=== PATIENT | female | born 1985 | race Caucasian/White ===

== ENCOUNTER 2020-09-23 15:33 | Emergency (ER) | payer MEDICAID ==
[~2020-09-23] VITALS: Ht 160 cm; Wt 47.5 kg
[~2020-09-23 15:33] MED LIST: ANTIDEPRESSANT PO; BUPR100T6 PO; GABA-826 PO; MELO7.5T31 PO; ONDA8TAB18 SL; OXYC10TA47
--- NOTE | 2020-09-23 16:24 | NUR ---
PT C/O HITTING HER HEAD BEGINNING OF SEPTEMBER, STATES HER SYMPTOMS ARE PAIN IN HER HEAD, WEIGHT LOSS AND MEMORY ISSUES. PT CHANGED INTO GOWN, CALL LIGHT WITHIN REACH, BED IN LOWEST POSITION.
[2020-09-23 16:31] VITALS: BP 107/49
--- NOTE | 2020-09-23 16:49 | NUR ---
PHLEBOTOMY IS AT THE BEDSIDE FOR BLOOD SAMPLING.
[2020-09-23 17:23] LABS: BASOPHILS % (AUTO) 1 % (0-1); EOSINOPHILS % (AUTO) 1 % (1-7); LYMPHOCYTES % (AUTO) 48 % (22-44); MEAN CORPUSCULAR HEMOGLOBIN 31.8 pg (27.0-34.8); MEAN CORPUSCULAR HGB CONC 34.2 g/dL (32.4-35.8); MEAN PLATELET VOLUME 8.1 fL (7.4-10.4); MONOCYTES % (AUTO) 7 % (2-9); NEUTROPHILS % (AUTO) 45 % (42-75); PLATELET COUNT 295 x10^3/uL (130-400); RED BLOOD COUNT 3.96 x10^6/uL (3.82-5.3); RED CELL DISTRIBUTION WIDTH 12.8 % (9.6-15.2)
[2020-09-23 17:40] LABS: ANION GAP 4 mmol/L (5-15); CHLORIDE 105 mmol/L (98-107)
--- NOTE | 2020-09-23 17:40 | NUR ---
PT TO CT W TECH
[2020-09-23 17:46] LABS: ALANINE AMINOTRANSFERASE 18 U/L (12-78); ALKALINE PHOSPHATASE 68 U/L (45-117); BILIRUBIN,TOTAL 0.3 mg/dL (0.2-1.0); CREATININE 0.57 mg/dL (0.55-1.02); TOTAL PROTEIN 7.1 g/dL (6.4-8.2)
--- NOTE | 2020-09-23 18:07 | NUR ---
PT AMBULATED TO THE RESTROOM WITH A STEADY GAIT. THERE ARE NO ACUTE CHANGES IN HER CONDITION SINCE HER ARRIVAL HERE TODAY. I WILL CONTIUE TO MONITOR AND TREAT ORDERED, WELL PRN WHILE AWAITING ERP TO RECHECK.
--- NOTE | 2020-09-23 18:31 | NUR ---
MD IS AT THE BEDSIDE FOR D/C INSTRUCTIONS.
== END 2020-09-23 18:41 | disposition home or self-care (01) ==
LOC: ED 17:06
DX: S09.90XA Unspecified injury of head, initial encounter (principal); X58.XXXA Exposure to other specified factors, initial encounter; Y93.89 Activity, other specified; Y92.410 Unspecified street and highway as the place of occurrence of the external cause; Y99.8 Other external cause status
CPT/HCPCS: 36415; 70450; 80053; 84703; 85025; 99284

== ENCOUNTER 2020-10-20 13:20 | Inpatient (IN) | payer MEDICAID ==
[~2020-10-20] VITALS: Ht 160 cm; Wt 51.0 kg
--- NOTE | 2020-10-20 13:52 | NUR ---
FIRST CONTACT: STATES MID ABD PAIN X1 WEEK. STATES N/V. STATES TAKES OXYCODONE FOR BACK PAIN, STATES UNABLE TO TAKE PAIN MEDICATION X5 HRS R/T ABD PAIN. PT TO BED WITH STEADY GAIT. ATTACHED TO MONITORS. VSS. PT CRYING R/T PAIN. AWAITING ORDERS.
--- NOTE | 2020-10-20 14:10 | NUR ---
ERIK PA TO BEDSIDE FOR EVALUATION.
[2020-10-20] MEDS ORDERED: ONDANSETRON 2MG/ML, 2ML ONE (14:27)
[2020-10-20] MEDS ORDERED: MORPHINE SULFATE 4 MG/ML, 1ML ONE ×2 (14:27→14:41)
[2020-10-20] MEDS ORDERED: SODIUM CHLORIDE 0.9% 1,000ML IVBOLUS ONE (14:30)
[2020-10-20] MEDS ORDERED: SODIUM CHLORIDE FLUSH 10ML SYR IVF ONE (14:30)
[2020-10-20] MEDS ORDERED: ONDANSETRON 2MG/ML, 2ML IVPush ONE (14:30)
[2020-10-20] MEDS: MORPHINE SULFATE 4 MG/ML, 1ML IVPush PRN ×2 (14:35→14:51)
[2020-10-20 14:41] LABS: BASOPHILS % (AUTO) 1 % (0-1); EOSINOPHILS % (AUTO) 0 % (1-7); LYMPHOCYTES % (AUTO) 17 % (22-44); MEAN CORPUSCULAR HGB CONC 34.5 g/dL (32.4-35.8); MONOCYTES % (AUTO) 5 % (2-9); NEUTROPHILS % (AUTO) 78 % (42-75); PLATELET COUNT 349 x10^3/uL (130-400); RED BLOOD COUNT 4.67 x10^6/uL (3.82-5.3); RED CELL DISTRIBUTION WIDTH 12.9 % (9.6-15.2)
[2020-10-20 14:46] LABS: ALANINE AMINOTRANSFERASE 25 U/L (12-78); ALBUMIN 4.9 g/dL (3.4-5.0); ANION GAP 9 mmol/L (5-15); CALCIUM 9.2 mg/dL (8.5-10.1); CHLORIDE 103 mmol/L (98-107)
[2020-10-20 14:51] LABS: ALKALINE PHOSPHATASE 105 U/L (45-117); BILIRUBIN,TOTAL 0.4 mg/dL (0.2-1.0); CREATININE 0.89 mg/dL (0.55-1.02); TOTAL PROTEIN 9.1 g/dL (6.4-8.2)
--- NOTE | 2020-10-20 14:51 | NUR ---
pt medicated per emar. vss. aspenn.
--- NOTE | 2020-10-20 14:53 | NUR ---
PT WAS SCREAMING OUT IN PAIN. 2ND DOSE OF MORPHINE GIVEN PRESCRIBED.
--- NOTE | 2020-10-20 16:02 | NUR ---
PT ASLEEP WHEN THIS RN ENTERS ROOM, UPON WAKING FOR UA SAMPLE, PT BEGAN SHAKING AND MOANING OUT IN PAIN STATING "I HAVE A VERY HIGH MEDICATION TOLERANCE, THAT PAIN MEDICATION YOU GAVE ME DID NOTHING FOR ME" THIS RN INFORMED ERIK SMITH. PER ERIK CARTER TO EVALUATE PT. NO NEW ORDERS. VSS.
[2020-10-20 16:07] LABS: MICROSCOPIC INDICATED
[2020-10-20] MEDS ORDERED: OMNIPAQUE 350 MG/ML, 100ML BOTTLE ONE (16:45)
[2020-10-20] MEDS ORDERED: FAMOTIDINE 20 MG/2 ML ONE (16:55)
[2020-10-20] MEDS ORDERED: HYDROmorphone 2 MG/ML, 1ML ONE (16:55)
[2020-10-20] MEDS ORDERED: HYDROmorphone 1 MG/ML, 1ML INJ IV ONE (17:00)
[2020-10-20] MEDS ORDERED: FAMOTIDINE 20 MG/2 ML IVPush ONE (17:00)
--- NOTE | 2020-10-20 17:48 | NUR ---
PT TO CT.
--- NOTE | 2020-10-20 18:10 | NUR ---
pt back from ct. vss. torres.
--- NOTE | 2020-10-20 19:04 | NUR ---
pt resting in bed with c/o pain. made aware. awaiting orders. vss. torres.
[2020-10-20] MEDS ORDERED: OXYC5TAB98 PO (20:00)
[2020-10-20] MEDS ORDERED: TRAM50TA2 PO (20:00)
[2020-10-20 20:34] VITALS: BP 107/65
[2020-10-20] MEDS ORDERED: PROMETHAZINE 25 MG/ML, 1ML IM PRN (21:30)
[2020-10-20] MEDS ORDERED: BISACODYL 10 MG SUPP PR PRN (21:30)
[2020-10-20] MEDS ORDERED: HALOPERIDOL 5 MG/ML IVPush PRN (21:30)
[2020-10-20] MEDS: LACTATED RINGERS 1,000 ML IV SCH (21:39)
[2020-10-20] MEDS: HYDROmorphone 2 MG/ML, 1ML IVPush PRN (21:45)
[2020-10-21] MEDS: KETOROLAC 30 MG/1 ML IV PRN (00:45)
[2020-10-21] MEDS ORDERED: POTASSIUM CHLORIDE 20 MEQ in SODIUM CHLORIDE 0.9% 250 ML IV ONE (01:00)
[2020-10-21 01:39] VITALS: BP 105/68
[2020-10-21] MEDS: HYDROmorphone 2 MG/ML, 1ML IVPush PRN ×7 (01:45→21:34)
[2020-10-21 04:52] LABS: BASOPHILS % (AUTO) 0 % (0-1); EOSINOPHILS % (AUTO) 1 % (1-7); LYMPHOCYTES % (AUTO) 21 % (22-44); MEAN CORPUSCULAR HEMOGLOBIN 32.2 pg (27.0-34.8); MEAN CORPUSCULAR HGB CONC 34.5 g/dL (32.4-35.8); MEAN PLATELET VOLUME 8.1 fL (7.4-10.4); MONOCYTES % (AUTO) 5 % (2-9); NEUTROPHILS % (AUTO) 74 % (42-75); PLATELET COUNT 272 x10^3/uL (130-400)
[2020-10-21 05:00] LABS: CALCIUM 7.8 mg/dL (8.5-10.1); CHLORIDE 112 mmol/L (98-107)
[2020-10-21 05:04] LABS: ANION GAP 6 mmol/L (5-15); CREATININE 0.57 mg/dL (0.55-1.02)
[2020-10-21 05:05] LABS: ALANINE AMINOTRANSFERASE 19 U/L (12-78); ALBUMIN 3.4 g/dL (3.4-5.0); ALKALINE PHOSPHATASE 64 U/L (45-117); BILIRUBIN,TOTAL 0.5 mg/dL (0.2-1.0); TOTAL PROTEIN 6.4 g/dL (6.4-8.2)
[2020-10-21] MEDS: LACTATED RINGERS 1,000 ML IV SCH (05:17)
[2020-10-21 06:41] VITALS: BP 110/61
[2020-10-21] MEDS ORDERED: ACETAMINOPHEN 325 MG TABLET PO PRN (07:30)
[2020-10-21] MEDS: HEPARIN 5,000 UNITS/ML, 1ML SQ SCH ×2 (08:00→20:00)
[2020-10-21] MEDS: BISACODYL 10 MG SUPP PR SCH (08:32)
[2020-10-21 12:21] VITALS: BP 102/60
[2020-10-21] MEDS ORDERED: LACTATED RINGERS 1,000 ML IV SCH (21:30)
[2020-10-22 00:14] VITALS: BP 120/85
[2020-10-22] MEDS ORDERED: MELATONIN 5 MG TABLET PO PRN (00:30)
[2020-10-22] MEDS: HYDROmorphone 2 MG/ML, 1ML IVPush PRN ×2 (00:36→03:41)
[2020-10-22 04:42] LABS: BASOPHILS % (AUTO) 0 % (0-1); EOSINOPHILS % (AUTO) 2 % (1-7); LYMPHOCYTES % (AUTO) 53 % (22-44); MEAN CORPUSCULAR HEMOGLOBIN 32.2 pg (27.0-34.8); MEAN CORPUSCULAR HGB CONC 34.7 g/dL (32.4-35.8); MEAN PLATELET VOLUME 7.6 fL (7.4-10.4); MONOCYTES % (AUTO) 7 % (2-9); NEUTROPHILS % (AUTO) 39 % (42-75); PLATELET COUNT 229 x10^3/uL (130-400); RED BLOOD COUNT 3.44 x10^6/uL (3.82-5.3); RED CELL DISTRIBUTION WIDTH 12.8 % (9.6-15.2)
[2020-10-22 07:15] VITALS: BP 116/76
[2020-10-22] MEDS: KETOROLAC 30 MG/1 ML IV PRN (07:34)
[2020-10-22] MEDS: HEPARIN 5,000 UNITS/ML, 1ML SQ SCH (07:34)
[2020-10-22] MEDS: OXYcodone IR 5MG TABLET PO PRN ×2 (08:03→14:52)
[2020-10-22] MEDS: BISACODYL 10 MG SUPP PR SCH (08:06)
[2020-10-22] MEDS ORDERED: SENN-190 PO (12:34)
[2020-10-22 12:43] VITALS: BP 100/60
== END 2020-10-22 17:24 | disposition home or self-care (01) | DRG 390 ==
LOC: ED 15:15 → EDIP 19:17 → 3N 20:26
PROVIDERS: ADMIT Family Medicine; ATTEND Internal Medicine
DX: K56.52 Intestinal adhesions [bands] with complete obstruction (principal); M51.36 Other intervertebral disc degeneration, lumbar region; G89.4 Chronic pain syndrome; G47.00 Insomnia, unspecified; E83.51 Hypocalcemia; E87.6 Hypokalemia; F41.1 Generalized anxiety disorder; Z79.891 Long term (current) use of opiate analgesic
CPT/HCPCS: 36415; 74018; 74021; 74177; 80053; 81001; 82330; 83690; 83735; 84100; 84703; 85025; 96361; 96374; 96375; 99285; G0378; J1170; J1644; J1885; J2405; J2550; J3480; Q9967; J1630; J2270; J7030; J7050; J7120